=== PATIENT | female | born 1960 | race Caucasian/White ===

== ENCOUNTER → 2018-07-15 17:39 | Outpatient (CLI) | payer BC, SELFPAY ==
[2018-07-15 18:20] LABS: Basophils # 0.1 K/mm3 (0-0.2); Basophils % 0.8 % (0.1-2.0); Eosinophils # 0.1 K/mm3 (0.0-0.4); Hematocrit 43.9 % (37.0-47.0); Hemoglobin 14.4 g/dL (12.2-16.2); Lymphocytes # 3.3 K/mm3 (0.7-4.5); Lymphocytes % 33.8 % (10-50); Mean Corpuscular HGB Conc 32.7 g/dL (31.8-35.4); Mean Corpuscular Volume 94.7 fl (81-99); Mean Platelet Volume 8.3 fl (7.4-10.4); Monocytes # 0.5 K/mm3 (0.1-1.0); Neutrophils # 5.8 K/mm3 (1.8-7.8); Neutrophils % 59.3 % (37.0-80.0); Platelet Count 309 K/mm3 (142-424); Red Blood Count 4.63 M/mm3 (4.20-5.40); Red Cell Distribution Width 13.1 % (11.5-17.5); White Blood Count 9.8 K/mm3 (4.8-10.8)
[2018-07-15 18:31] LABS: Amphetamine/Metha Screen,Urine Negative ng/mL (<1000); Barbiturates Screen,Urine Negative ng/mL (<200); Benzodiazepines Screen,Urine Negative ng/mL (<200); Cannabinoid Screen,Urine Negative ng/mL (<50); Cocaine Screen,Urine Negative ng/mL (<300); Methadone Screen,Urine Negative ng/mL (<300); Opiate Screen,Urine Negative ng/mL (<300); Phencyclidine Screen,Urine Negative ng/mL (<25)
[2018-07-15 18:52] LABS: Alanine Aminotransferase 31 U/L (12-78); Albumin Level 3.7 gm/dL (3.4-5.0); Albumin/Globulin Ratio 1.1 (1.1-1.8); Alkaline Phosphatase 81 U/L (46-116); Anion Gap 14.4 mEq/L (5-15); Aspartate Amino Transferase 17 U/L (15-37); Bilirubin,Total 0.2 mg/dL (0.2-1.0); Blood Urea Nitrogen 15 mg/dL (7-18); Calcium 9.3 mg/dL (8.5-10.1); Carbon Dioxide 27 mmol/L (21.0-32.0); Chloride 103 mmol/L (98-107); Chol/HDL Ratio 3.1 (1-3.5); Cholesterol 180 mg/dL (140-200); Creatinine,Serum 0.51 mg/dL (0.55-1.02); Estimated Glomerular Filt Rate 124 ml/min (>60); GFR (African American) 150 ML/MIN (>60); Globulin 3.4 gm/dl (1.3-3.2); Glucose 86 mg/dL (74-106); HDL Cholesterol 59 mg/dL (29-89); LDL Cholesterol 102 mg/dL (0-130); Potassium 4.4 mmoL/L (3.5-5.1); Sodium 140 mmol/L (136-145); T4 (Thyroxine) 6.9 ug/dl (4.7-13.3); Thyroid Stimulating Hormone 2.67 uIU/ml (0.358-3.740); Total Protein,Serum 7.1 gm/dL (6.4-8.2); Triglycerides 96 mg/dL (30-200); VLDL Cholesterol 19 mg/dL (0-40)
[2018-07-15 20:33] LABS: Hemoglobin A1C 5.9 % (0.0-7.0)
[2018-07-17 08:17] LABS: Vitamin D 25 Hydroxy 22.6 ng/mL (30.0-100.0)
[2018-07-18 08:49] LABS: Microalbumin, Urine <3.0 ug/mL (Not Estab.)
== END ==
PROVIDERS: Visit Provider Physician Assistant
DX: E03.9 Hypothyroidism, unspecified (principal); E11.9 Type 2 diabetes mellitus without complications; I10 Essential (primary) hypertension; Z79.84 Long term (current) use of oral hypoglycemic drugs
CPT/HCPCS: 80053; 80061; 80305; 82043; 82652; 83036; 84436; 84443; 85025

== ENCOUNTER → 2018-07-16 11:01 | Outpatient (CLI) | payer BC, SELFPAY ==
--- NOTE | 2018-07-16 11:07 | XR_ITS ---
XR shoulder RT min 2V HISTORY: ITS.REASON: right shoulder pain ORDERING PHYSICIAN: CHULA Padilla PATIENT AGE: 58 years Comparison: None FINDINGS: There are mild osteoarthritic changes at the acromioclavicular joint. Mild subacromial narrowing laterally. No fracture or dislocation. No lytic or blastic change. There is some mild subarticular cystic change of the greater tuberosity which may be seen with rotator cuff disease IMPRESSION: Mild osteoarthritic change of the acromioclavicular joint with mild subacromial stenosis Mild subarticular cystic change of the greater tuberosity which may be seen with rotator cuff disease
--- NOTE | 2018-07-16 11:07 | XR_ITS ---
EXAM: XR cervical spine 4V HISTORY: ITS.REASON: Neck pain ORDERING PHYSICIAN: CHULA Padilla PATIENT AGE: 58 years COMPARISON: None FINDINGS: Normal alignment. No fracture or dislocation. No lytic or blastic change. There is slight decrease in the disc space at C5-C6 and C6-C7 and there is minimal anterolisthesis of C4 on C5 of 2 mm. Mild foraminal narrowing is present bilaterally at C4-C5. Facet hypertrophic/arthritic changes are noted at C4-C5 and C5-C6. No evidence of cervical rib. IMPRESSION: Cervical spondylosis as described above with degenerative disc disease and facet arthritic change with mild bilateral foraminal narrowing at
--- NOTE | 2018-07-16 11:07 | XR_ITS ---
EXAM: XR lumbar spine min 4V HISTORY: Low back pain ITS.REASON: Back pain ORDERING PHYSICIAN: CHULA Padilla PATIENT AGE: 58 years COMPARISON: None FINDINGS: There is normal alignment. Degenerative disc disease is present from L1 S1 is worse at L5-S1. No fracture or dislocation. No lytic or blastic change. There is bilateral sacroiliac sclerosis and there is mild facet arthritic change at the lumbosacral junction. IMPRESSION: Multilevel degenerative disc disease worse at L5-S1 with bilateral sacroiliac sclerosis and facet arthritic change at the lumbosacral junction
== END ==
PROVIDERS: PCP Physician Assistant; Visit Provider Physician Assistant
DX: M25.511 Pain in right shoulder (principal); M54.2 Cervicalgia; M54.5 Low back pain
CPT/HCPCS: 72050; 72110; 73030

== ENCOUNTER → 2018-08-25 09:17 | Outpatient (POV) | payer BC, SELFPAY ==
[2018-08-25 09:22] VITALS: BP 149/83; PULSE 91; RESP 18; O2SAT 98
--- NOTE | 2018-08-25 11:40 | HMH.PMCON ---
Assessment and Plan (1) Cervical radiculopathy Current visit: Yes Status: Chronic Category: Medical Code(s): M54.12 - Radiculopathy, cervical region (2) Lumbar radiculopathy Current visit: Yes Status: Chronic Category: Medical Code(s): M54.16 - Radiculopathy, lumbar region (3) Degenerative disc disease, cervical Current visit: No Status: Chronic Category: Medical Code(s): M50.30 - Other cervical disc degeneration, unspecified cervical region (4) Degenerative disc disease, lumbar Current visit: No Status: Chronic Category: Medical Code(s): M51.36 - Other intervertebral disc degeneration, lumbar region - Assessment and plan all Dx Assessment and Plan for all problems:: We will schedule a C4 C5 C5-C6 cervical branch block/facet joint injection injection for the patient. I will follow-up with the patient after injection and reassess her symptoms at that time we will then start to work on her lower back. Patient is not on any anticoagulation therapy she is continuing a home stretching program. She has failed conservative treatment for over 6 months including medications and home stretching regimens. Dr. Yeager has reviewed this note and agrees with this plan of care. This note was dictated using voice recognition software and may contain errors or omissions HPI - Data of Consult Consult date: 08/25/18 Requesting Physician: Fatimah Hopson APRN Primary Care Provider: CHULA Kimbrough - Consult Narrative Reason for consult: Back pain History of present illness: Ms. Anaya is a 58 year old female who presents today for consultation in regards to her low back pain. Patient was being seen by Dr. Ac and receiving Xanax, phentermine, Percocet 7.5. Patient states that he has now left the practice. Patient rates her pain today a 5 out of 10. Patient is tried and failed Lortab/Motrin/Percocet/Paxil/Lyrica/Ultram. Patient is completed physical therapy, chiropractic therapy and massage therapy with minimal relief. Patient did have an SI joint injection in the past with significant relief. Patient has right leg numbness. She also has neck pain. She also states she is having significant neck pain which is worse with twisting motions. CC: Fatimah Hopson APRN [facility] History I have reviewed the patient's past medical history: Yes Medical History: Reports:: Anxiety, Depression, Diabetes Mellitus Type 2, Hypertension, Migraine *Have you ever received a pneumonia vaccine?: Yes Other Medical History: Reports: Fibromyalgia, Hypothyroidism Laterality Cases: Bilateral: Myringotomy (Ear Tubes) Other Surgeries: Yes: Cholecystectomy, Tubal Ligation Amputation: No Fractures: No - *Social History Smoking Status: Current every day smoker Tobacco Type: cigarettes # Packs/Day (cigarettes): 1 Alcohol Intake: never Substance Use Type: denies use *Occupational Status:: employed Housing: house Household Members: other *Travel in the last 8 weeks: None - Psychiatric History Expresses thoughts of harming self/others: None Suicide Plan Description: No Plan Pschychiatric History:: Reports:: Anxiety, Depression Family Hx:: Cancer, Diabetes, Stroke, Thyroid Disorder, Hypertension Review of Systems - Review of Systems ROS General: no recent weight change, no fever, no sleep disturbances Respiratory: no cough, no shortness of air, no recurring pulmonary infections Cardiovascular/Peripheral Vascular: No chest pain, No palpitations, no edema, no shortness of breath. Gastrointestinal: no incontinence, normal bowel movements reported Genitourinary: no incontinence Musculoskeletal: Neck pain, back pain Psychiatric: normal mood/ affect Neurological: [denies weakness in extremities], [denies balance issues] Meds Home Medications Medication Instructions Recorded Confirmed Type cyclobenzaprine 10 mg tablet 10 mg PO TID 07/15/18 08/25/18 History diclofenac 1 % topical gel 2 g TOPICAL QID
--- NOTE | 2018-08-25 11:44 | P.CONS_ITS ---
Assessment and Plan (1) Cervical radiculopathy Current visit: Yes Status: Chronic Category: Medical Code(s): M54.12 - Radiculopathy, cervical region (2) Lumbar radiculopathy Current visit: Yes Status: Chronic Category: Medical Code(s): M54.16 - Radiculopathy, lumbar region (3) Degenerative disc disease, cervical Current visit: No Status: Chronic Category: Medical Code(s): M50.30 - Other cervical disc degeneration, unspecified cervical region (4) Degenerative disc disease, lumbar Current visit: No Status: Chronic Category: Medical Code(s): M51.36 - Other intervertebral disc degeneration, lumbar region - Assessment and plan all Dx Assessment and Plan for all problems:: We will schedule a C4 C5 C5-C6 cervical branch block/facet joint injection injection for the patient. I will follow-up with the patient after injection and reassess her symptoms at that time we will then start to work on her lower back. Patient is not on any anticoagulation therapy she is continuing a home stretching program. She has failed conservative treatment for over 6 months including medications and home stretching regimens. Dr. Yeager has reviewed this note and agrees with this plan of care. This note was dictated using voice recognition software and may contain errors or omissions HPI - Data of Consult Consult date: 08/25/18 Requesting Physician: Fatimah Hopson APRN Primary Care Provider: CHULA Kimbrough - Consult Narrative Reason for consult: Back pain History of present illness: Ms. Anaya is a 58 year old female who presents today for consultation in regards to her low back pain. Patient was being seen by Dr. Ac and receiving Xanax, phentermine, Percocet 7.5. Patient states that he has now left the practice. Patient rates her pain today a 5 out of 10. Patient is tried and failed Lortab/Motrin/Percocet/Paxil/Lyrica/Ultram. Patient is completed physical therapy, chiropractic therapy and massage therapy with minimal relief. Patient did have an SI joint injection in the past with significant relief. Patient has right leg numbness. She also has neck pain. She also states she is having significant neck pain which is worse with twisting motions. CC: Fatimah Hopson APRN [facility] History I have reviewed the patient's past medical history: Yes Medical History: Reports:: Anxiety, Depression, Diabetes Mellitus Type 2, Hypertension, Migraine *Have you ever received a pneumonia vaccine?: Yes Other Medical History: Reports: Fibromyalgia, Hypothyroidism Laterality Cases: Bilateral: Myringotomy (Ear Tubes) Other Surgeries: Yes: Cholecystectomy, Tubal Ligation Amputation: No Fractures: No - *Social History Smoking Status: Current every day smoker Tobacco Type: cigarettes # Packs/Day (cigarettes): 1 Alcohol Intake: never Substance Use Type: denies use *Occupational Status:: employed Housing: house Household Members: other *Travel in the last 8 weeks: None - Psychiatric History Expresses thoughts of harming self/others: None Suicide Plan Description: No Plan Pschychiatric History:: Reports:: Anxiety, Depression Family Hx:: Cancer, Diabetes, Stroke, Thyroid Disorder, Hypertension Review of Systems - Review of Systems ROS General: no recent weight change, no fever, no sleep disturbances Respiratory: no cough, no shortness of air, no recurring pulmonary infections Cardiovascular/Peripheral Vascular: No chest pain, No palpitations, no edema, no shortness of breath. Gastrointestinal: no incontinence, normal bowel movements reported
== END ==
PROVIDERS: PCP Physician Assistant; Visit Provider Clinical Nurse Specialist Family Health
DX: M50.10 Cervical disc disorder with radiculopathy, unspecified cervical region (principal); M51.16 Intervertebral disc disorders with radiculopathy, lumbar region
CPT/HCPCS: 99202

== ENCOUNTER 2018-08-28 16:30 | Outpatient (RCR) | payer BC, SELFPAY ==
--- NOTE | 2018-07-28 11:14 | HMH.PTOPEV ---
PT Outpatient Evaluation Rehab PT Outpatient Evaluation Start: 07/28/18 11:02 Freq: Status: Active Protocol: Document 07/28/18 11:03 AL (Rec: 07/28/18 11:14 AL [id number]) Electronically Signed By Alonso Rader, PT 07/28/18 11:03 Outpatient Therapy Subjective History Subjective History THis is the initial Physical Therapy evaluation for Rozina Anaya. Pt is a 58 y/o female referred to PT for c/o neck and shoulder pain. Pt rpeorts pain in R shoulder began insidiously ~ 3 weeks ago. 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 Pt rpeorts she has had neck and back pain for years w/ BUE paresthesia and BERRIOS's Chief Complaint Pain Paresthesia Symptom Type Ache Throb Sharp Numbness Tingling Shooting Symptoms Relieved By Prescription Meds Symptoms Aggravated By Physical Activity Lifting Prior Functional Limitations None Current Functional Limitations Reaching Lifting Housework Driving Sleeping Recreation Activity Symptom Description Constant but Variable Level of pain today (0-10) 7 Pain scale - at its best (0-10) 7 Pain scale - at its worst (0-10) 8 Cervical Eval Palpation Cervical Muscles R Cervical Paraspinal L Cervical Paraspinal R Suboccipital L Suboccipital R CT Junction L CT Junction Cervical/Thoracic Palpation Findings Tenderness Muscle Guarding Flexibility Deficits Upper Trapezius Muscle Length (R) Moderate Tightness (L) Moderate Tightness AROM Cervical Spine Extension Active Range of 40 Motion (degrees) Cervical Spine Flexion Active Range of 40 Motion (degrees) Cervical Spine Right Lateral Flexion 25 Active Range of Motion (degrees) C
== END 2018-08-28 16:35 | disposition home or self-care (01) ==
LOC: PT 16:30
PROVIDERS: Visit Provider Physician Assistant
DX: M54.2 Cervicalgia (principal); M54.9 Dorsalgia, unspecified; M25.511 Pain in right shoulder
CPT/HCPCS: 97010; 97012; 97014; 97033; 97110; 97140; 97163; G0283

== ENCOUNTER → 2018-09-24 14:02 | Outpatient (CLI) | payer BC, SELFPAY | PROVIDERS: Visit Provider Physician Assistant | DX: B71.9 Cestode infection, unspecified (principal) | CPT/HCPCS: 87177 ==

== ENCOUNTER → 2018-09-30 09:45 | Outpatient (POV) | payer BC, SELFPAY ==
[2018-09-30 09:54] VITALS: BP 158/88; PULSE 83; RESP 18; O2SAT 98; BMI 41.8
--- NOTE | 2018-09-30 10:46 | HMH.PAINSOAP ---
[facility] Pain Management SOAP Note Subjective:: Patient is a 58-year-old white female who presents today for follow-up of bilateral cervical facet joint injections/medial branch blocks of C4-C5 and C5-C6. She states that the procedure was very traumatic. She says that she has never felt pain as bad as the injections that she had. She says the block did not help at all. She had 0% relief, and said she had the expectation of being sedated, or asleep during the procedure. She is very unhappy today. She says that she was on an oral medication regimen in the past that was very effective, but her primary care physician that did prescribe the medication has since retired. A thorough discussion of interventional pain management was discussed. She says that her current primary care physician recommended she have an intrathecal pump insertion. She has reservations about this. She says that she is not willing to have any other injections at this time. She does complain of right lower back and right hip pain today. She rates her pain a 9 out of 10. 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 She says that due to her job, the pain never goes away. She says she has tried anti-inflammatories that do not work, as well as a home stretching program. X ROS General: no recent weight change, no fever, no sleep disturbances Respiratory: no cough, no shortness of air, no recurring pulmonary infections Cardiovascular/Peripheral Vascular: No chest pain, No palpitations, no edema, no shortness of breath. Gastrointestinal: no incontinence, normal bowel movements reported Genitourinary: no incontinence Musculoskeletal: Lumbar back pain, pain Psychiatric: normal mood/ affect, [denies depression], [denies anxiety] Neurological: [denies weakness in extremities], [denies balance issues] Objective:: Physical Exam General: Alert and oriented x3, no acute distress, pleasant and cooperative, [on room air] Lungs: Resps E/U, Symmetrical chest expansion, Eyes: PERRL Musculoskeletal: Flexion and extension of lumbar spine somewhat guarded secondary to pain, deep tendon reflexes normal, strength in upper and lower extremities [5/5], normal gait noted Neurological: speech clear, plant guide equal, no gross sensory deficits Assessment:: Degenerative joint disease, degenerative osteoarthritis both hips, facet arthropathy cervical spine Plan:: I think the patient would benefit from a right SI joint injection and right greater trochanteric bursa injection. The patient has adamantly verbalized she is not willing to pursue any other treatment options at this time. She says the previous injections and nerve block were too traumatic. She also says she is not willing to consider an intrathecal pump at this time. She understands that we are unable to provide her with oral medications, and would like to consider her options. Been encouraged to continue her home stretching program and anti-inflammatories. She is also been instructed to call the office if she has any further questions or any concerns. I have recommended her to return to her PCP and discuss potential referral to a medication management clinic. Dr. Yeager has reviewed this note and agrees with this plan of care. This note was dictated using voice recognition software and may contain errors or omissions
--- NOTE | 2018-09-30 10:54 | P.CONS_ITS ---
[facility] Pain Management SOAP Note Subjective:: Patient is a 58-year-old white female who presents today for follow-up of bilateral cervical facet joint injections/medial branch blocks of C4-C5 and C5- C6. She states that the procedure was very traumatic. She says that she has never felt pain as bad as the injections that she had. She says the block did not help at all. She had 0% relief, and said she had the expectation of being sedated, or asleep during the procedure. She is very unhappy today. She says that she was on an oral medication regimen in the past that was very effective, but her primary care physician that did prescribe the medication has since retired. A thorough discussion of interventional pain management was discussed. She says that her current primary care physician recommended she have an intrathecal pump insertion. She has reservations about this. She says that she is not willing to have any other injections at this time. She does complain of right lower back and right hip pain today. She rates her pain a 9 out of 10. 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 She says that due to her job, the pain never goes away. She says she has tried anti-inflammatories that do not work, as well as a home stretching program. X ROS General: no recent weight change, no fever, no sleep disturbances Respiratory: no cough, no shortness of air, no recurring pulmonary infections Cardiovascular/Peripheral Vascular: No chest pain, No palpitations, no edema, no shortness of breath. Gastrointestinal: no incontinence, normal bowel movements reported Genitourinary: no incontinence Musculoskeletal: Lumbar back pain, pain Psychiatric: normal mood/ affect, [denies depression], [denies anxiety] Neurological: [denies weakness in extremities], [denies balance issues] Objective:: Physical Exam General: Alert and oriented x3, no acute distress, pleasant and cooperative, [on room air] Lungs: Resps E/U, Symmetrical chest expansion, Eyes: PERRL Musculoskeletal: Flexion and extension of lumbar spine somewhat guarded second lisbeth to pain, deep tendon reflexes normal, strength in upper and lower extremities [5/5], normal gait noted Neurological: speech clear, brine well operator equal, no gross sensory deficits Assessment:: Degenerative joint disease, degenerative osteoarthritis both hips, facet arthropathy cervical spine Plan:: I think the patient would benefit from a right SI joint injection and right greater trochanteric bursa injection. The patient has adamantly verbalized she is not willing to pursue any other treatment options at this time. She says the previous injections and nerve block were too traumatic. She also says she is not willing to consider an intrathecal pump at this time. She understands that we are unable to provide her with oral medications, and would like to consider her options. Been encouraged to continue her home stretching program and anti- inflammatories. She is also been instructed to call the office if she has any further questions or any concerns. I have recommended her to return to her PCP and discuss potential referral to a medication management clinic. Dr. Yeager has reviewed this note and agrees with this plan of care. This note was dictated using voice recognition software and may contain errors or omissions
== END ==
PROVIDERS: PCP Physician Assistant; Visit Provider Clinical Nurse Specialist Family Health
DX: M16.0 Bilateral primary osteoarthritis of hip (principal); M54.02 Panniculitis affecting regions of neck and back, cervical region
CPT/HCPCS: 99212

== ENCOUNTER → 2021-06-14 13:02 | Outpatient (CLI) | payer BC, SELFPAY ==
--- NOTE | 2021-06-14 13:02 | MM_ITS ---
PROCEDURE INFORMATION: Exam: MG Bilateral Screening 3D Mammography Exam date and time: 06/14/2021 1:02 PM Age: 61 years old Clinical indication: Encounter for screening mammogram for malignant neoplasm of breast; Additional info: Screening for breast cancer TECHNIQUE: Imaging protocol: Bilateral Screening tomosynthesis and 2D mammography including computer-aided detection (CAD) when performed. COMPARISON: 1. MG [facility] DIG MAMM-SCREEN SHANTEL W/CAD 02/12/2017 9:28 AM 2. MG [facility] DIG MAMM-SCREEN SHANTEL 09/29/2012 8:45 AM 3. MG [facility] DIGITAL MAMM-SCREEN BILATERAL 06/27/2010 3:59 PM FINDINGS: MAMMOGRAPHY: Breast composition: There are scattered areas of fibroglandular density. Mass: No suspicious masses. Architectural distortion: No suspicious distortion. Calcifications: No suspicious calcifications. Asymmetric density: None. Skin thickening: None. Axillary adenopathy: None. IMPRESSION: No mammographic evidence of malignancy. Annual screening is recommended unless otherwise clinically indicated. ASSESSMENT: BI-RADS Category 1: Negative
[2021-06-14 13:24] LABS: Basophils # 0.1 K/mm3 (0-0.2); Eosinophils # 0.2 K/mm3 (0.0-0.4); Eosinophils % 2.4 % (0.1-12.0); Hematocrit 41.2 % (37.0-47.0); Hemoglobin 13.9 g/dL (12.2-16.2); Lymphocytes # 3.1 K/mm3 (0.7-4.5); Lymphocytes % 30.4 % (10-50); Mean Corpuscular HGB Conc 33.7 g/dL (31.8-35.4); Mean Corpuscular Hemoglobin 31.9 pg (27.0-31.2); Mean Corpuscular Volume 94.9 fl (81-99); Mean Platelet Volume 7.5 fl (7.4-10.4); Monocytes # 0.6 K/mm3 (0.1-1.0); Neutrophils # 6.2 K/mm3 (1.8-7.8); Neutrophils % 60.2 % (37.0-80.0); Platelet Count 313 K/mm3 (142-424); Red Blood Count 4.34 M/mm3 (4.20-5.40); Red Cell Distribution Width 12.7 % (11.5-17.5); White Blood Count 10.2 K/mm3 (4.8-10.8)
[2021-06-14 14:06] LABS: Chloride 103 mmol/L (98-107); Potassium 4.3 mmoL/L (3.5-5.1); Sodium 134 mmol/L (136-145)
[2021-06-14 14:08] LABS: Blood Urea Nitrogen 17 mg/dl (7-17); Estimated Glomerular Filt Rate 102 ml/min (>60); GFR (African American) 123 ML/MIN (>60)
[2021-06-14 14:09] LABS: Alanine Aminotransferase 21 U/L (12-78); Albumin/Globulin Ratio 1.6 (1.1-1.8); Alkaline Phosphatase 65 U/L (38-126); Anion Gap 7.3 mEq/L (5-15); Aspartate Amino Transferase 27 U/L (14-36); Bilirubin,Total 0.5 mg/dl (0.2-1.3); Calcium 8.4 mg/dl (8.4-10.2); Carbon Dioxide 28 mmol/L (22.0-30.0); Globulin 2.5 g/dL (1.3-3.2); Glucose 95 mg/dl (74-100); Total Protein,Serum 6.5 g/dl (6.3-8.2)
[2021-06-14 14:46] LABS: Hemoglobin A1C 5.3 % (4.0-6.0)
[2021-06-14 15:14] LABS: Microalbumin/Creatinine Ratio 9.5
[2021-06-14 15:19] LABS: Creatinine,Urine Random 94 mg/dL (Not Estab.)
== END ==
PROVIDERS: PCP Physician Assistant; Visit Provider Physician Assistant
DX: Z12.31 Encounter for screening mammogram for malignant neoplasm of breast (principal); E11.9 Type 2 diabetes mellitus without complications
CPT/HCPCS: 36415; 77063; 77067; 80053; 82043; 82570; 83036; 85025

== ENCOUNTER → 2021-06-27 16:00 | Outpatient (CLI) | payer BC, SELFPAY ==
[2021-06-27 20:07] LABS: 25-OH Vitamin D, Total 33.6 ng/mL (30-100)
[2021-06-27 20:21] LABS: Thyroid Stimulating Hormone 1.44 uIU/mL (0.465-4.68)
[2021-06-27 20:39] LABS: Vitamin B12 911 pg/mL (239-931)
== END ==
PROVIDERS: Visit Provider Physician Assistant
DX: E03.9 Hypothyroidism, unspecified (principal); E55.9 Vitamin D deficiency, unspecified
CPT/HCPCS: 82306; 82607; 84443

== ENCOUNTER → 2022-06-21 13:29 | Outpatient (CLI) | payer BC, SELFPAY ==
--- NOTE | 2022-06-21 13:33 | XR_ITS ---
FINAL REPORT CLINICAL HISTORY: left hip and leg pain with radiculopathy COMPARISON: none FINDINGS: LEFT HIP: Two views of the left hip and a single view of the pelvis demonstrate no acute fracture or dislocation. The joint spaces appear normal. The visualized bony structures are well aligned. Mild degenerative change. No soft tissue abnormality is seen. IMPRESSION: Degenerative change with no acute bony abnormality. Reviewed, Interpreted and Dictated by Ryan Conklin III, MD Transcribed by Neva Iyer Authenticated and [facility]
--- NOTE | 2022-06-21 13:33 | XR_ITS ---
FINAL REPORT CLINICAL HISTORY: left hip and leg pain with radiculopathy COMPARISON: none FINDINGS: 5 views of the lumbar spine were obtained. There is no evidence of fracture or dislocation. A there is mild anterolisthesis of L4 on L5. There are mild and moderate degenerative changes. No paraspinous soft tissue abnormalities identified. IMPRESSION: Degenerative changes with no acute bony abnormality. Reviewed, Interpreted and Dictated by Ryan Conklin III, MD Transcribed by Neva Iyer Authenticated and [facility]
== END ==
LOC: RAD 13:30
PROVIDERS: PCP Physician Assistant; Visit Provider Nurse Practitioner Family
DX: M54.16 Radiculopathy, lumbar region (principal); M51.36 Other intervertebral disc degeneration, lumbar region; M79.605 Pain in left leg; M19.041 Primary osteoarthritis, right hand; M19.042 Primary osteoarthritis, left hand
CPT/HCPCS: 72110; 73502

== ENCOUNTER → 2022-08-03 10:49 | Outpatient (CLI) | payer BC, SELFPAY ==
--- NOTE | 2022-08-03 10:51 | MR_ITS ---
FINAL REPORT CLINICAL HISTORY: RADICULOPATHY OF THE LUMBAR REGION pt was mopping at work on jun 21 when all a sudden she couldnt walk anymore pt stated left hip / leg is worse than right FINDINGS: Multiplanar MR imaging of the lumbar spine was performed without contrast. On the sagittal T2-weighted images, there is abnormal decreased signal throughout the lumbar discs. There is advanced disc space narrowing at L5-S1. The vertebrae are of normal height. The vertebral alignment is normal. There is a 1.3 cm cyst in the posterior right kidney. T12-L1: There is no significant canal stenosis or neural foraminal narrowing. L1-2: Mild diffuse disc bulge is present with mild bilateral neural foraminal narrowing. L2-3: Mild to moderate diffuse disc bulge is present. There is mild to moderate left neural foraminal narrowing. L3-4: Moderate diffuse disc bulge is present with moderate bilateral neural foraminal narrowing. L4-5: Mild diffuse disc bulge is present with mild to moderate right and mild left neural foraminal narrowing. L5-S1: Mild diffuse disc bulge is present with mild to moderate bilateral neural foraminal narrowing. IMPRESSION: Multilevel changes of degenerative disc disease with neural foraminal compromise, most evident on the left at L2-3 and bilaterally at L3-4 and L5-S1. No acute bony abnormality. Reviewed, Interpreted and Dictated by Herbert Lindsay MD Transcribed by Joann Torres Authenticated and [facility]
== END ==
LOC: RAD 10:49
PROVIDERS: PCP Physician Assistant; Visit Provider Family Medicine
DX: M54.16 Radiculopathy, lumbar region (principal)
CPT/HCPCS: 72148; 76376